=== PATIENT | male | born 2005 | race Caucasian/White ===

== ENCOUNTER 2024-07-22 18:04 | Emergency (ER) | payer SELFPAY ==
[~2024-07-22] VITALS: Ht 177.8 cm; Wt 68.0 kg
[2024-07-22 20:05] LABS: BASOPHILS ABSOLUTE AUTO 0.01 K/mm3 (0.00-0.23); BASOPHILS PERCENT AUTO 0 % (0-2); EOSINOPHILS ABSOLUTE AUTO 0.01 K/mm3 (0.00-0.68); EOSINOPHILS PERCENT AUTO 0 % (0-6); Hematocrit 39.4 % (37.0-53.0); Hemoglobin 14.3 g/dL (13.5-17.5); IMMATURE GRAN ABSOLUTE AUTO 0.01 K/mm3 (0.00-0.10); IMMATURE GRAN PERCENT AUTO 0 % (0-1); LYMPHOCYTES ABSOLUTE AUTO 0.52 K/mm3 (0.84-5.20); LYMPHOCYTES PERCENT AUTO 12 % (21-46); MONOCYTES ABSOLUTE AUTO 0.88 K/mm3 (0.16-1.47); MONOCYTES PERCENT AUTO 21 % (4-13); Mean Corpuscular HGB 31.7 pg (26.0-34.0); Mean Corpuscular HGB Conc 36.3 g/dL (31.5-36.5); Mean Corpuscular Volume 87 fL (80-100); Mean Platelet Volume 9.7 fL (9.1-12.4); NEUTROPHILS ABSOLUTE AUTO 2.81 K/mm3 (1.96-9.15); NEUTROPHILS PERCENT AUTO 66 % (41-73); Platelet Count 147 K/mm3 (150-400); RDW Coefficient Variation 11.7 % (11.7-14.2); RDW Standard Deviation 37.5 fL (35.1-46.3); Red Blood Cell Count 4.51 M/mm3 (4.30-5.90); White Blood Cell Count 4.24 K/mm3 (4.00-11.30)
[2024-07-22 20:39] LABS: Albumin, Blood 3.9 g/dL (3.4-5.0); Albumin/Globulin Ratio 1.3 (0.8-1.8); Bilirubin, Total 1.2 mg/dL (0.1-1.0); Bun/Creatinine Ratio 16.7 (12.0-20.0); Calcium, Blood 8.9 mg/dL (8.5-10.1); Creatinine, Blood 1.2 mg/dL (0.60-1.20); Potassium, Blood 3.6 mmol/L (3.5-5.5); Total Protein, Blood 6.9 g/dL (6.4-8.2)
[2024-07-22 21:33] LABS: CORONAVIRUS COVID-19 AG Negative (NEGATIVE); INFLUENZA A AG Positive (NEGATIVE); INFLUENZA B AG Negative (NEGATIVE)
[2024-07-22] MEDS ORDERED: NS 1,000 ML IV SCH (21:45)
[2024-07-22] MEDS ORDERED: OSEL75CA PO (22:44)
[2024-07-22] MEDS ORDERED: Oseltamivir Phosphate 75 MG Cap PO ONE (22:45)
== END 2024-07-22 22:55 | disposition home or self-care (01) ==
LOC: ER 18:04
PROVIDERS: Physician Assistant
DX: J10.1 Influenza due to other identified influenza virus with other respiratory manifestations (principal); Z88.5 Allergy status to narcotic agent
CPT/HCPCS: 71046; 80053; 85025; 87428-QW; 99283-25; A9270; J7030

== ENCOUNTER 2024-10-13 08:47 | Emergency (ER) | payer OTHER ==
[~2024-10-13] VITALS: Ht 162.6 cm; Wt 56.7 kg
[~2024-10-13 08:47] MED LIST: OSEL75CA PO
== END 2024-10-13 09:51 | disposition home or self-care (01) ==
LOC: ER 08:47
DX: L84 Corns and callosities (principal)
CPT/HCPCS: 99283